=== PATIENT | female | born 1980 | race Caucasian/White ===

== ENCOUNTER 2024-10-11 00:54 | Emergency (ER) | payer BC, SELFPAY ==
[2024-10-11 00:57] VITALS: BP 123/87; PULSE 116; TEMP 36.7; O2SAT 99; BMI 25.1
--- NOTE | 2024-10-11 01:23 | ECG_ITS ---
[facility] Test Date: 2024-10-11 Pat Name: FABBY BLISS Department: Room: - Gender: Female [employer] Administrator: : [id number] Requested By: [id number] Order Number: [id number] Reading MD: MAIDA PAEZ M.D. Measurements Intervals [place] Rate: 99 P: 25 NC: 140 QRS: 20 QRSD: 80 T: 27 QT: 348 QTc: 404 Interpretive Statements 1100 Sinus rhythm 1470 with occasional supraventricular premature complexes 8102 Low QRS voltage in chest leads abnormal ECG No previous ECG available for comparison Electronically Signed On 10-11-2024 19:58:29 EDT by MAIDA PAEZ M.D.
--- NOTE | 2024-10-11 01:23 | ED.GENADUL1 ---
HPI HPI - General Adult General Chief complaint: Shortness of Breath/Dyspnea Stated complaint: SHORTNESS OF BREATH Time Seen by Provider: 10/11/24 01:03 Source: patient Mode of arrival: walk-in Limitations: no limitations History of Present Illness HPI narrative: This 44-year-old female presents to the emergency department with chief complaint of shortness of breath. She states that she feels a lump like sensation in her throat as though it is difficult for her to swallow. This is an ongoing symptom for her for the last several days. She was admitted to [facility] 5 weeks ago and states that she was found to be very anemic with a hemoglobin of 7.1 and received 1 unit of packed red cells. She was also started on IV iron infusion but developed an anaphylactic reaction to it. She was discharged after a 4 day admission at that facility. She does not have a history of asthma. She states that during that admission she also underwent EGD and colonoscopy. She is on Ativan 0.5 mg twice a day for anxiety. She has been diagnosed with inappropriate tachycardia. 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 Related Data Previous Rx's ?Medication ?Instructions ?Recorded hydroxyzine HCl 25 mg tablet 25 mg PO Q6H PRN anxiety #30 tabs 10/11/24 Allergies Allergy/AdvReac Type Severity Reaction Status Date / Time iron infusion Allergy Severe Anaphylaxis Uncoded 10/11/24 01:05 Review of Systems ROS Status of ROS 10 or more systems reviewed and unremarkable except as noted in history and below [facility] Social History Little interest or pleasure in doing things: not at all Feeling down, depressed, or hopeless: not at all Exam Narrative Exam Narrative: Patient is mildly tachycardic with otherwise stable vital signs. She is not dyspneic. HEENT exam is normal to inspection. Neck is supple. Lung sounds are clear to auscultation bilaterally with good air entry. Heart has a slightly rapid rate with regular rhythm. No murmurs or gallops are heard. Abdomen is protuberant, soft and nontender. She does not have unilateral leg swelling or calf tenderness. Speech and mentation are clear and intact. There is no facial asymmetry. She moves all extremities actively. Constitutional Vital Signs, click to edit/add: Last Vital Signs Temp 98.0 F 10/11/24 00:57 Pulse 116 H 10/11/24 00:57 Resp 18 10/11/24 00:57 BP 123/87 10/11/24 00:57 Pulse Ox 98 10/11/24 01:42 O2 Del Method Room Air 10/11/24 01:42 Course Vital Signs Vital signs: Vital Signs Temperature 98.0 F 10/11/24 00:57 Pulse Rate 116 H 10/11/24 00:57 Respiratory Rate 18 10/11/24 00:57 Blood Pressure 123/87 10/11/24 00:57 Pulse Oximetry 99 10/11/24 00:57 Oxygen Delivery Method Room Air 10/11/24 00:57 Temperature 98.0 F 10/11/24 00:57 Pulse Rate 116 H 10/11/24 00:57 Respiratory Rate 18 10/11/24 00:57 Blood Pressure 123/87 10/11/24 00:57 Pulse Oximetry 98 10/11/24 01:42 Oxygen Delivery Method Room Air 10/11/24 01:42 Medical Decision Making MDM Narrative Medical decision making narrative: The twelve-lead EKG is interpreted by me and shows sinus rhythm with a heart rate of 99 bpm. [place] interval, QRS duration and QTc intervals are normal. There is no acute ST elevation. Dimer and troponin are normal. The rest of the workup is benign. Her hemoglobin is 10.6 today. Patient has described globus sensation along with intermittent dyspnea and I feel this is more likely due to anxiety and hyperventilation. She is administered 1 mg Ativan orally in the ED and upon discharge is placed on hydroxyzine 25 mg every 6 hours as needed for anxiety. She is referred to her PCP for follow-up for further management and may return anytime for worsening symptoms. Lab Data Labs: Lab Results 10/11/24 Range/Units 01:31 WBC 5.9 (4.0-11.0) 10^3/uL RBC 4.26 (4.20-5.40) 10^6/uL Hgb 10.6 L (12.0-16.0) g/dL Hct 33.6 L (36.0-48.0) % MCV 78.9 L (81.0-99.0) fL MCH 24.9 L (26.7-34.0) pg MCHC 31.5 (29.9-35.2) g/dL RDW 19.9 H (11.0-15.0) % Plt Count 261 (150-450) 10^3/uL MPV 8.8 L (9.5-13.5) fL Neut % (Auto) 52.9 (43.0-75.0) % Lymph % (Auto) 34.0 (20.5-60.0) % [place] % (Auto) 9.0 (1.7-12.0) % Eos % (Auto) 2.0 (0.9-7.0) % Baso % (Auto) 1.9 (0.2-2.0) % Neut # (Auto) 3.1 (1.4-6.5) 10^3/uL Lymph # (Auto) 2.0 (1.2-3.8) 10^3/uL [place] # (Auto) 0.5 (0.3-0.8) 10^3/uL Eos # (Auto) 0.1 (0.0-0.7) 10^3/uL Baso # (Auto) 0.1 (0.0-0.1) 10^3/uL Abs Immat Gran (auto) 0.01 (0.00-0.03) 10^3/uL Imm/Tot Granulo (auto) 0.2 (0.0-0.5) % D-Dimer 0.44 (<=0.59) mg/L FEU Sodium 140 (136-145) mmol/L Potassium 3.2 L (3.5-5.1) mmol/L Chloride 102 (98-107) mmol/L Carbon Dioxide 27.1 (21.0-32.0) mmol/L Anion Gap 14.1 BUN 6.0 L (7.0-18.0) mg/dL Creatinine 0.71 (0.55-1.02) mg/dL Est GFR ( Amer) >60 (>=60 mL/min/1.73m^2) Est GFR (Non-Af Amer) >60 (>=60 mL/min/1.73m^2) BUN/Creatinine Ratio 8.5 Glucose 104 (74-106) mg/dL Calcium 9.5 (8.5-10.1) mg/dL Troponin I High Sens <4.0 L (4.0-51.3) pg/mL NT-Pro-B Natriuret Pep 124.0 (<=450.0) pg/mL Serum HCG, Qual Negative (NEGATIVE) Discharge Plan Discharge Chief Complaint: Shortness of Breath/Dyspnea Clinical Impression: Anxiety Patient Disposition: Home, Self-Care Time of Disposition Decision: 02:16 Condition: Good Mode of Transportation: Private Vehicle Prescriptions / Home Meds: New hydroxyzine HCl 25 mg tablet 25 mg PO Q6H PRN (Reason: anxiety) Qty: 30 0RF Print Language: Cymraes Instructions: Anxiety (ED) Additional Instructions: Follow-up with PCP later in the week. Return for worsening symptoms. Referrals: Physician,Non-Staff, MD [Primary Care Provider] - 1 week
[2024-10-11 01:36] LABS: Basophils Absolute Auto 0.1 10^3/uL (0.0-0.1); Basophils Percent Auto 1.9 % (0.2-2.0); Eosinophils Absolute Auto 0.1 10^3/uL (0.0-0.7); Hematocrit 33.6 % (36.0-48.0); Hemoglobin 10.6 g/dL (12.0-16.0); Immature Granulocytes Abs Auto 0.01 10^3/uL (0.00-0.03); Immature Granulocytes Pct Auto 0.2 % (0.0-0.5); Mean Corpuscular HGB Conc 31.5 g/dL (29.9-35.2); Mean Corpuscular Hemoglobin 24.9 pg (26.7-34.0); Mean Corpuscular Volume 78.9 fL (81.0-99.0); Mean Platelet Volume 8.8 fL (9.5-13.5); Monocytes Absolute Auto 0.5 10^3/uL (0.3-0.8); Neutrophils Absolute Auto 3.1 10^3/uL (1.4-6.5); Neutrophils Percent Auto 52.9 % (43.0-75.0); Platelet Count 261 10^3/uL (150-450); Red Blood Count 4.26 10^6/uL (4.20-5.40); Red Cell Distribution Width 19.9 % (11.0-15.0); White Blood Count 5.9 10^3/uL (4.0-11.0)
[2024-10-11 01:42] VITALS: O2SAT 98
[2024-10-11] MEDS: LORAZEPAM 0.5 MG TABLET 1 MG PO (01:46)
[2024-10-11 01:52] LABS: D Dimer 0.44 mg/L FEU (<=0.59)
[2024-10-11 01:53] LABS: HCG Qualitative NEGATIVE (NEGATIVE); Internal Control Within Normal Limits
[2024-10-11 02:01] LABS: Anion Gap 14.1; BUN Creatinine Ratio 8.5; Calcium 9.5 mg/dL (8.5-10.1); Carbon Dioxide 27.1 mmol/L (21.0-32.0); Chloride 102 mmol/L (98-107); Estimated GFR (African America >60 (>=60 mL/min/1.73m^2); Estimated GFR (Non-African Ame >60 (>=60 mL/min/1.73m^2); Glucose 104 mg/dL (74-106); Potassium 3.2 mmol/L (3.5-5.1); Sodium 140 mmol/L (136-145); Troponin I High Sensitivity <4.0 pg/mL (4.0-51.3)
[2024-10-11 02:28] VITALS: PULSE 96; O2SAT 98
== END 2024-10-11 02:30 | disposition home or self-care (01) ==
PROVIDERS: Emergency Provider Emergency Medicine; PCP Internal Medicine
DX: F41.9 Anxiety disorder, unspecified (principal); Z79.899 Other long term (current) drug therapy; R06.02 Shortness of breath
CPT/HCPCS: 36415; 80048; 83880; 84484; 84703; 85025; 85378; 93005; 99285